=== PATIENT | male | born 1965 | race Caucasian/White ===

== ENCOUNTER 2024-12-13 10:50 | Outpatient (REF) | payer OTHER, SELFPAY ==
--- NOTE | ~2024-12-13 | XR_ITS ---
CLINICAL HISTORY: M1A.9XX0 - Chronic gout, unspecified, without tophus (tophi) --- Additional Notes or Special Instructions: ?gouty erosive arthritis vs PsA 3 view left foot Comparison: None provided Findings: Bones intact. No dislocations. No significant loss of joint space, osteophytes, or erosions. No ankle effusion. No radiopaque foreign body. IMPRESSION: 1. No acute findings. 2. No definite suspicious erosions . No soft tissue calcifications. This document has been electronically signed by: Suman Fountain MD on 12/14/2024 11:02:00
--- NOTE | ~2024-12-13 | XR_ITS ---
CLINICAL HISTORY: M1A.9XX0 - Chronic gout, unspecified, without tophus (tophi) --- Additional Notes or Special Instructions: ?tophous gout, PsA vs tumoral calcinosis, hx gout and FSGS 3 view right elbow Comparison: None provided Findings: Bones intact. No dislocations. No significant arthritic change or erosions. No joint effusion. No radiopaque foreign body. IMPRESSION: 1. No acute findings. This document has been electronically signed by: Suman Fountain MD on 12/14/2024 10:47:01
--- NOTE | ~2024-12-13 | XR_ITS ---
CLINICAL HISTORY: M1A.9XX0 - Chronic gout, unspecified, without tophus (tophi) --- Additional Notes or Special Instructions: ?gouty erosive arthritis vs PsA 3 view right foot Comparison: None provided Findings: No fractures or dislocations. Faint erosion suggested at the right 5th metatarsal head and along the medial aspect of the 1st metatarsal head. No soft tissue calcifications identified. No ankle effusion. No radiopaque foreign body. IMPRESSION: There are subtle erosions along the heads of the 1st and 5th metatarsals. Prior gout could have this appearance. No soft tissue calcification or definite tophus identified. This document has been electronically signed by: Suman Fountain MD on 12/14/2024 11:07:23
--- NOTE | ~2024-12-13 | XR_ITS ---
CLINICAL HISTORY: M1A.9XX0 - Chronic gout, unspecified, without tophus (tophi) --- Additional Notes or Special Instructions: ?gouty erosive arthritis vs PsA 3 view right hand Comparison: None provided Findings: Bones intact. No dislocations. Mild interphalangeal degenerative change and degenerative change of the base of the 1st metacarpal. Questionable subtle erosion of the base of the left 1st metacarpal and along the ulnar styloid. IMPRESSION: 1. No acute findings 2. Mild degenerative changes and questionable erosion along the base of the 1st metacarpal and along the ulnar styloid This document has been electronically signed by: Suman Fountain MD on 12/14/2024 11:06:55
--- NOTE | ~2024-12-13 | XR_ITS ---
CLINICAL HISTORY: M25.50 - Pain in unspecified joint --- Additional Notes or Special Instructions: ?tophous gout, PsA vs tumoral calcinosis, hx gout and FSGS 3 view left elbow Comparison: None provided Findings: Bones intact. No dislocations. There is prominence of the olecranon bursa. No joint effusion. No radiopaque foreign body. IMPRESSION: Thickening of the olecranon bursa. Correlation for bursitis. This document has been electronically signed by: Suman Fountain MD on 12/14/2024 11:01:43
--- NOTE | ~2024-12-13 | XR_ITS ---
CLINICAL HISTORY: M1A.9XX0 - Chronic gout, unspecified, without tophus (tophi) --- Additional Notes or Special Instructions: ?gouty erosive arthritis vs PsA 3 view left hand Comparison: None provided Findings: Bones intact. No dislocations. No significant arthritic change. Questionable tiny erosion of the juxta-articular margin of the proximal 4th interphalangeal joint. No radiopaque foreign body. IMPRESSION: 1. No acute findings 2. Questionable tiny erosion along the proximal 4th PIP joint. This document has been electronically signed by: Suman Fountain MD on 12/14/2024 12:08:59
[2024-12-13 15:10] LABS: WBC Synovial Fluid Manual 427 mm*3
[2024-12-13 15:11] LABS: Eosinophils Synovial Fluid 1 %; Lymphocytes Synovial Fluid 16 %; Monocytes Synovial Fluid 3 %; Neutrophils Synovial Fluid 80 %; RBC Synovial Fluid Manual 4404 mm*3
[2024-12-13 17:55] LABS: MANUAL DIFF FLAG NO
[2024-12-13 18:01] LABS: Appearance Urine Clear; Color Urine Yellow; Glucose Urine UA Negative (Negative); Leukocyte Esterase Urine Negative (Negative); Nitrite Urine Negative (Negative); Specific Gravity - Urine 1.015 (1.005-1.025); Urine Blood Negative (Negative); Urine Ketones Negative (Negative); Urine Protein Negative (Neg-Trace)
[2024-12-13 18:04] LABS: Bacteria Urine None Seen (None Seen); Hyaline Casts Urine 0-2 /LPF (0-2); RBC Urine 0-2 /HPF (0-2); Squamous Epithelial Cell Urine 0-2 /HPF (0-2); WBC Urine 0-5 /HPF (0-5)
[2024-12-13 18:14] LABS: Basophils Absolute Auto 0.1 X10*3/uL (0.0-0.2); Basophils Percent Auto 1.2 % (0-2); Eosinophils Absolute Auto 0.3 X10*3/uL (0.0-0.4); Eosinophils Percent Auto 3.1 % (0-4); Hematocrit 45.7 % (42.0-52.0); Hemoglobin 15.3 g/dl (14.0-18.0); Imm Gran Abs Auto 0.02 X10*3/uL (0.00-0.03); Imm Gran Pct Auto 0.2 % (0.0-0.4); Lymphocytes Absolute Auto 1.8 X10*3/uL (1.2-4.9); Lymphocytes Percent Auto 21.8 % (20-40); Mean Corpuscular HGB Conc 33.5 g/dl (31.0-36.0); Mean Corpuscular Hemoglobin 30.6 pg (27.0-33.0); Mean Corpuscular Volume 91.4 fL (80.0-98.0); Mean Platelet Volume 9.6 fL (9.4-12.4); Monocytes Absolute Auto 0.9 X10*3/uL (0.1-1.2); Monocytes Percent Auto 11.2 % (2-11); Neutrophils Absolute Auto 5.1 x10*3/uL (2.0-8.3); Neutrophils Percent Auto 62.5 % (45-73); Platelet Count 372 X10*3/uL (160-400); Red Cell Distribution Width 13.6 % (11.0-16.0); White Blood Count 8.1 X10*3/uL (4.8-10.8)
[2024-12-13 18:20] LABS: Alanine Aminotransferase 20 U/L (0-40); Aspartate Amino Transferase 26 U/L (5-37); C Reactive Protein 3.15 mg/dL (< or = 0.50); Estimated Glomerular Filt Rate > 60; Uric Acid 6.4 mg/dL (3.4-7.0)
[2024-12-13 18:28] LABS: Creatinine Urine 70.93 mg/dL; Total Protein Urine Random < 7 mg/dL (<12)
[2024-12-13 19:01] LABS: Erythrocyte Sedimentation Rate 32 MM/HR (0-15)
[2024-12-14 08:48] LABS: HBS Num1 0.64 mIU/mL (0-7.99); HBc Num1 0.02 S/CO (0.00-0.79); Hepatitis B Core Antibody Nonreactive (Nonreactive); Hepatitis B Surface Antigen Negative (Negative); ~HepC Num1 0.08 S/CO (0.00-0.79); ~Hepatitis B Surface Antibody NONREACTIVE (Nonreactive); ~Hepatitis C Antibody Nonreactive (Nonreactive)
[2024-12-14 10:45] LABS: Complement C3 154 mg/dL (82-185)
[2024-12-14 16:19] LABS: Anti DNA DS Antibody <1 IU/mL
== END 2024-12-13 10:51 | disposition home or self-care (01) ==
LOC: HO.HKASLDS 10:50
PROVIDERS: PCP Internal Medicine; Visit Provider Internal Medicine Rheumatology
DX: M1A.9XX0 Chronic gout, unspecified, without tophus (tophi) (principal); M25.50 Pain in unspecified joint; R76.8 Other specified abnormal immunological findings in serum; Z79.899 Other long term (current) drug therapy
CPT/HCPCS: 20600; 36415; 73070; 73130; 73630; 81001; 82565; 82570; 84156; 84450; 84460; 84550; 85025; 85652; 86140; 86160; 86225; 86704; 86706; 86803; 87340; 89051; 89060; 99202; J2003

== ENCOUNTER 2024-12-13 10:50 | Outpatient (AMB) | payer SELFPAY ==
--- NOTE | 2024-12-13 10:52 | MHC.OFFVIS ---
Vital Signs 12/13/24 10:54 Height 5 ft 10.39 in Weight 223 lb BMI 31.6 BP 140/90 H Blood Pressure Location Lt brachial Position Sitting Pulse 86 Pulse Source Pulse Oximeter Pulse Oximetry (%) 97 Oxygen Delivery Method Room Air Intake Visit Reasons: + KATHERINE Intake Note: New patient presents today for a +KATHERINE. Accompanied by: Self / Same As Patient Allergies No Known Allergies Allergy (Verified 12/13/24 10:54) HPI HPI + KATHERINE: Details: New patient visit. KATHERINE 1:160 04/2024. R foot swelling acute on November 01. Prednisone course helped. He then developed right 5th MTP nodule. Persistent swelling like a roller coaster . Denies diet trigger. He quit drinking alcohol 1-1/2 years ago. No family hx of IBD. Hx of right second finger dactylitis.No dactylitis. No family history of gout. NO fever, sicca symptoms, rash, photosensitivity, Raynaud's syndrome. Hx of asthma. He has dyspnea during asthmatic attack but feels comfortable at this time. No pleurisy. No proteinuria,or any urinary symptoms. R 4th finger feels '' for 1 year. He completed PT. PCP informed him that his ulnar nerve may be compressed by nodule in his right elbow. He has had on and off joint pain and swelling over the years lasting a week treated with colchicine for a few days. He has also received prednisone courses over the years for treatment of gout. Dx with gout by Dr. Ritter 2006. He reports he has aspiration and was dx crystal proven gout. He had a course of few days of colchicine. He was on allopurinol 1 year. 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 He has nodules on bilateral elbows and knees. PMX: FSGS treated with cyclosporine and prednisone in the past resulting in complications of bilateral avascular necrosis status post bilateral hip replacements. He had eczema during childhood. Brother has PsA and PsO. Sister has PsA sine PsO. No recreational drug use. No smoking or alcohol use. Medication list and medical history reviewed in expanse. [facility] Medical History (Updated 12/13/24 @ 21:03 by Lio Long MD) FSGS (focal segmental glomerulosclerosis) Eyelid disease H/O electromyography Seasonal allergies Prediabetes Obstructive sleep apnea Mild intermittent reactive airway disease Lung nodule, multiple Gout Diverticulitis Colonic polyp Chronic pain of multiple joints Albuminuria Surgical History H/O umbilical hernia repair History of colonoscopy History of total hip replacement History of sinus surgery Family History (Updated 12/13/24 @ 11:01 by Emilee Brown CMA) Sister No problems noted. Sister Psoriatic arthritis Brother Psoriatic arthritis Social History Housing: Apartment Alcohol intake: former e-Cigarette/Vaping Use: Never Used Physical Exam Vital Signs: Last Vital Signs Pulse 86 12/13/24 10:54 BP 140/90 H 12/13/24 10:54 Pulse Ox 97 12/13/24 10:54 Oxygen Delivery Method Room Air 12/13/24 10:54 BMI result Body Mass Index 31.6 Const Other: General: Comfortable CVS: RRR Respiratory: clear to auscultation bilaterally. Good respiratory effort Skin: No lesions seen MSK: Tender to palpate right 1st MTP. He has diffuse soft tissue swelling of right dorsal foot with erythema. Slight erythema right ankle without tenderness. Tophus present in bilateral olecranon bursae and bilateral anterior knees. Normal range of motion of upper extremities and lower extremities. No dactylitis present. Office Procedures AMB Joint Injection/Aspiration Joint Injection/Aspiration Details: Right 1st MTP Prep: site was prepped using aseptic technique Anesthesia: Using 25 gauge 1-1/2 inch needle 2 cc of 1% lidocaine was injected into the right 1st MTP. Then using 22 gauge 1 in needle 1 cc of blood-tinged synovial fluid was aspirated from right MTP. Procedure: Informed verbal consent was obtained. The patient tolerated the procedure well. Postprocedure protocol was discussed with patient. Coding - Small Joint Procedure code (CPT) selection complete Office Meds lidocaine (PF) 10 mg/mL (1 %) injection solution Performing Provider: Lio Long MD Performing Location: [facility] [place] Rheumatology-[facility] Administered by: Coty Vuong RN on 12/13/24 12:30 Dose Route Admin Location Dispensed Lot Number Expiration Date NDC Psychiatric [facility]ist 20 mg Infiltration intra-articular 2 mL [id number] [employer] Total Dispensed Waste 2 mL 0 % Assessment & Plan Assessment & Plan (1) Chronic tophaceous gout: Comment: Crystal proven again this visit as patient had aspiration of right 1st MTP. We discussed treatment of chronic gout (onset of right foot swelling October 2024) with another course of prednisone. After he has resolution of chronic gout, I will start uric lowering therapy with allopurinol and gout prophylaxis with colchicine. Code(s): M1A.9XX1 - Chronic gout, unspecified, with tophus (tophi) Category: Medical Plan: Prednisone course prescribed Baseline labs ordered Patient will call office after right foot gout has resolved. I will then start allopurinol 100 mg daily with colchicine 0.6 mg daily x-rays bilateral hands, elbows, and feet ordered to evaluate for gouty erosive arthritis, tophacous gout vs tumoral calcinosis Return to clinic in 2 months (2) Positive KATHERINE (antinuclear antibody): Comment: Low titer positive. My clinical suspicion for systemic rheumatological connective tissue disease such as systemic lupus erythematosus, rheumatoid arthritis, Sjogren syndrome and systemic sclerosis is low. He has family history of psoriasis and psoriatic arthritis. At this time, he has crystal proven gout contributing to right foot pain and swelling confirmed this visit with right MTP aspiration. Code(s): R76.8 - Other specified abnormal immunological findings in serum Category: Medical Plan: Workup and treatment for tophaceous gout as above. Orders: Orders XR foot LT min 3V Today M1A.9XX0 - Chronic gout, unspecified, without tophus (tophi) XR hand RT min 3V Today M1A.9XX0 - Chronic gout, unspecified, without tophus (tophi) Alanine Aminotransferase Today M1A.9XX0 - Chronic gout, unspecified, without tophus (tophi), M25.50 - Pain in unspecified joint Aspartate Amino Transferase Today M1A.9XX0 - Chronic gout, unspecified, without tophus (tophi), M25.50 - Pain in unspecified joint Complement C4 Today M1A.9XX0 - Chronic gout, unspecified, without tophus (tophi), M25.50 - Pain in unspecified joint Complete Blood Count Auto Diff Today M1A.9XX0 - Chronic gout, unspecified, without tophus (tophi), M25.50 - Pain in unspecified joint Anti DNA DS Antibody Today M1A.9XX0 - Chronic gout, unspecified, without tophus (tophi), M25.50 - Pain in unspecified joint Creatinine Today M1A.9XX0 - Chronic gout, unspecified, without tophus (tophi), M25.50 - Pain in unspecified joint Crystals Today M1A.9XX0 - Chronic gout, unspecified, without tophus (tophi) Cell Ct wDiff Synovial Fl Today M1A.9XX0 - Chronic gout, unspecified, without tophus (tophi) Crystals Today M1A.9XX0 - Chronic gout, unspecified, without tophus (tophi) XR hand LT min 3V Today M1A.9XX0 - Chronic gout, unspecified, without tophus (tophi) XR foot RT min 3V Today M1A.9XX0 - Chronic gout, unspecified, without tophus (tophi) XR elbow LT 2V Today M1A.9XX0 - Chronic gout, unspecified, without tophus (tophi), M25.50 - Pain in unspecified joint XR elbow RT 2V Today M1A.9XX0 - Chronic gout, unspecified, without tophus (tophi), M25.50 - Pain in unspecified joint C Reactive Protein Today M1A.9XX0 - Chronic gout, unspecified, without tophus (tophi), M25.50 - Pain in unspecified joint, Z79.899 - Other custodial (current) drug therapy Complement C3 Today M1A.9XX0 - Chronic gout, unspecified, without tophus (tophi), M25.50 - Pain in unspecified joint Erythrocyte Sedimentation Rate Today M1A.9XX0 - Chronic gout, unspecified, without tophus (tophi), M25.50 - Pain in unspecified joint, Z79.899 - Other remote computer terminal operator (current) drug therapy UA w Microscopic Today M1A.9XX0 - Chronic gout, unspecified, without tophus (tophi), M25.50 - Pain in unspecified joint Protein Creatinine Ratio, Ur Today M1A.9XX0 - Chronic gout, unspecified, without tophus (tophi), M25.50 - Pain in unspecified joint Uric Acid Today M1A.9XX0 - Chronic gout, unspecified, without tophus (tophi), M25.50 - Pain in unspecified joint Hepatitis B,C Profile Today M1A.9XX0 - Chronic gout, unspecified, without tophus (tophi), M25.50 - Pain in unspecified joint AMB Joint Injection/Aspiration Today M1A.9XX0 - Chronic gout, unspecified, without tophus (tophi) Medications: New prednisone Take 4 tablets daily for 5 days, 3 tablets daily for 5 days, 2 tablets daily for 5 days, 1 tablet daily for 5 days then half a tablet daily for 5 days then stop. Take prednisone with food. 10 mg PO DIRECTED 53 tabs 0RF Coding Level of Care Code New Pt Level 5 (25426) Diagnoses Chronic tophaceous gout M1A.9XX1 Positive KATHERINE (antinuclear antibody) R76.8 CPT Codes Coding - 86541 - Small joint: 47836 - Small Joint ([id number]) Time Spent (min) 60
[2024-12-13 10:54] VITALS: BP 140/90; PULSE 86; O2SAT 97; BMI 31.6
--- OUTSIDE RECORDS SUMMARY | 2024-12-13 12:28 | XMS_ITS | Clinical Summary ---
Author Organization [facility] ity Address [address] [place] [address] Care Team Providers Care General Cleaner Name Role Phone Tomas Cpoeland MD Primary Care Provider [phone] Allergies No known active allergies Medications budesonide-form oteroL (Symbicort) 160-4.5 mcg/actuation inhaler TAKE 2 PUFFS BY MOUTH TWICE A DAY. Active loratadine (CLARITIN) 10 mg tablet Take 10 mg by mouth daily. Active albuterol 2.5 mg /3 mL (0.083 %) nebulizer solution Take 3 mL (2.5 mg total) by nebulization every 4 (four) hours if needed for wheezing. 300 mL 11 5 10/18/19 Active Encounters Date Type Department Care Team Description 10/17/[address] [id number] Vel Redding MD Med Refill from Last 3 Months Social History Tobacco Use Types Packs/Day Years Used Date Smoking Tobacco: Never Smokeless Tobacco: Never Alcohol Use Standard Drinks/Week Comments Never 0 (1 standard drink = 0.6 oz pur e alcohol) Sex and Gender Information Value Date Recorded Sex Assigned at Not on file Legal Sex Male 11:06 AM EST Gender Identity Not on file Sexual Orientation Not on file Obstetrics History Last Filed Vital Signs Vital Sign Reading Time Taken Comments Blood Pressure 102/64 02/23/2024 3:48 PM EDT Sitting L Arm Pulse 65 02/23/2024 3:48 PM EDT Temperature - - Respiratory Rate - - Oxygen Saturation - - Inhaled Oxygen Concentration - - Weight 102 kg (225 lb 12.8 oz) 02/23/2024 3:48 PM EDT Height 175.3 cm (5' 9 ) 02/23/2024 3:48 PM EDT Body Mass Index 33.34 02/23/2024 3:48 PM EDT Plan of Treatment Upcoming Encounters Date Type Department Care Team (Late st Contact Info) Description 02/23/2025 3:30 PM EDT Office Visit Pulmonolgy - [place] [address] [place] [id number] Vel Redding MD [address] [facility] [address] [place] [address] Health Maintenance Due Date Last Done Comments DTaP,Tdap,and Td Vaccines (1 - Tdap) 10/02/1982 Pneumococcal Vaccine: 50+ Ye ars (1 of 2 - PCV) 10/02/1982 Pneumococcal Vaccine: Pediat rics (0 to 5 Years) and At-Risk Patients (6 to 64 Years) (1 of 2 - PCV) 10/02/1982 Zoster Vaccines (1 of 2) 10/02/2013 Cholesterol Screening (Lipid Panel) 05/26/2022 Colorectal Cancer Screening: Colonoscopy 05/26/2022 Depression Screening 05/26/2022 HIV Screening 05/26/2022 Hepatitis C Screening 05/26/2022 Social Influencers of Health Screening 05/26/2022 RSV Immunization Adult Patie nts (1 - Risk 60-74 years 1-dose series) 2023 COVID-19 Vaccine (1 - 2023-2 5 season) 2024 Influenza Vaccine (Season Ended) 2025 HIB Vaccines Aged Out No longer eligi ble based on patient's age to complete this topic HPV Vaccines Aged Out No longer eligi ble based on patient's age to complete this topic Hepatitis A Vaccines Aged Out No long er eligible based on patient's age to complete this topic Hepatitis B Vaccines Aged Out No long er eligible based on patient's age to complete this topic IPV Vaccines Aged Out No longer eligi ble based on patient's age to complete this topic MMR Vaccines Aged Out No longer eligi ble based on patient's age to complete this topic Meningococcal ACWY Vaccine Aged Out N o longer eligible based on patient's age to complete this topic Meningococcal B Vaccine Aged Out No l onger eligible based on patient's age to complete this topic RSV Immunization Patients Un rahel 20 months Aged Out No longer eligible b ased on patient's age to complete this topic Varicella Vaccines Aged Out No longer eligible based on patient's age to complete this topic Care Teams General Cleaner Relationship Specialty Start Date End Date Tomas Copeland MD PCP - General Internal Medicine 04/25/19
== END 2024-12-13 12:37 | disposition home or self-care (01) ==
LOC: HO.RHES 10:50
PROVIDERS: PCP Internal Medicine; Visit Provider Internal Medicine Rheumatology
DX: M1A.9XX1 Chronic gout, unspecified, with tophus (tophi) (principal); R76.8 Other specified abnormal immunological findings in serum
CPT/HCPCS: 20600; 99205

== ENCOUNTER → 2024-12-13 15:44 | Outpatient (BNV) | payer OTHER, SELFPAY | PROVIDERS: PCP Internal Medicine; Visit Provider Radiology Vascular & Interventional Radiology | DX: M15.4 Erosive (osteo)arthritis (principal); M25.521 Pain in right elbow; M79.671 Pain in right foot; M70.22 Olecranon bursitis, left elbow; M79.672 Pain in left foot | CPT/HCPCS: 73070; 73130; 73630 ==

== ENCOUNTER 2025-02-15 10:32 | Outpatient (AMB) | payer OTHER, SELFPAY ==
[2025-02-15 10:36] VITALS: BP 120/80; PULSE 69; O2SAT 98; BMI 32.5
--- NOTE | 2025-02-15 10:36 | A.OFFVIS_ITS ---
Vital Signs 02/15/25 10:36 Height 5 ft 10.39 in Weight 229 lb 0.964 oz BMI 32.5 BP 120/80 Blood Pressure Location Lt brachial Position Sitting Pulse 69 Pulse Source Pulse Oximeter Pulse Oximetry (%) 98 Oxygen Delivery Method Room Air Intake Visit Reasons: 2 months / review results Intake Note: New patient presents today for a +KATHERINE. Accompanied by: Self / Same As Patient Allergies No Known Allergies Allergy (Verified 02/15/25 10:36) HPI HPI 2 months / review results: Details: Foot/ankle swelling resolved. Left shoulder pain started a few days ago. Initially was unable to move his arm up. He took ibuprofen 400mg q4h with improvement in pain level and range of motion. He also has pain in bilateral forearms. He started allopurinol but not colchicine. [facility] Medical History FSGS (focal segmental glomerulosclerosis) Eyelid disease H/O electromyography Seasonal allergies Prediabetes Obstructive sleep apnea Mild intermittent reactive airway disease Lung nodule, multiple Gout Diverticulitis Colonic polyp Chronic pain of multiple joints Albuminuria Surgical History H/O umbilical hernia repair History of colonoscopy History of total hip replacement History of sinus surgery Family History Sister No problems noted. Sister Psoriatic arthritis Brother Psoriatic arthritis Social History Housing: Apartment Alcohol intake: former e-Cigarette/Vaping Use: Never Used Physical Exam Vital Signs: Last Vital Signs Pulse 69 02/15/25 10:36 BP 120/80 02/15/25 10:36 Pulse Ox 98 02/15/25 10:36 Oxygen Delivery Method Room Air 02/15/25 10:36 BMI result Body Mass Index 32.5 Const Other: General: Comfortable CVS: RRR Respiratory: clear to auscultation bilaterally. Good respiratory effort Skin: No lesions seen MSK: He has synovitis of right 2nd to 3rd MCP with tenderness on palpation. Tophus has resolved. He has fullness of bilateral olecranon bursae. Normal range of motion of upper extremities and lower extremities. No dactylitis present. Results Reviewed Results Reviewed: Ordering Physician: Lio Long MD Date of Service: 12/13/24 Procedure(s): XR hand LT min 3V Accession Number(s): [id number] cc: Lio Long MD; Tomas Copeland MD~ CLINICAL HISTORY: M1A.9XX0 - Chronic gout, unspecified, without tophus (tophi) --- Additional Notes or Special Instructions: ?gouty erosive arthritis vs PsA 3 view left hand Comparison: None provided Findings: Bones intact. No dislocations. No significant arthritic change. Questionable tiny erosion of the juxta-articular margin of the proximal 4th interphalangeal joint. No radiopaque foreign body. IMPRESSION: 1. No acute findings 2. Questionable tiny erosion along the proximal 4th PIP joint. Ordering Physician: Lio Long MD Date of Service: 12/13/24 Procedure(s): XR hand RT min 3V Accession Number(s): [id number] cc: Lio Long MD; Tomas Copeland MD~ CLINICAL HISTORY: M1A.9XX0 - Chronic gout, unspecified, without tophus (tophi) --- Additional Notes or Special Instructions: ?gouty erosive arthritis vs PsA 3 view right hand Comparison: None provided Findings: Bones intact. No dislocations. Mild interphalangeal degenerative change and degenerative change of the base of the 1st metacarpal. Questionable subtle erosion of the base of the left 1st metacarpal and along the ulnar styloid. IMPRESSION: 1. No acute findings 2. Mild degenerative changes and questionable erosion along the base of the 1st metacarpal and along the ulnar styloid 3 view right foot Comparison: None provided Findings: No fractures or dislocations. Faint erosion suggested at the right 5th metatarsal head and along the medial aspect of the 1st metatarsal head. No soft tissue calcifications identified. No ankle effusion. No radiopaque foreign body. IMPRESSION: There are subtle erosions along the heads of the 1st and 5th metatarsals. Prior gout could have this appearance. No soft tissue calcification or definite tophus identified. Assessment & Plan Assessment & Plan (1) Chronic tophaceous gout: Comment: Gout affecting his right ankle and foot has resolved. 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 Imaging has revealed erosive changes. Since being on allopurinol tophus has resolved. He is tolerating allopurinol. Uric acid goal is less than 5. In the past he had diarrhea from colchicine used during an acute attack possibly related to higher dose. He has agreed to try colchicine for gout prophylaxis. Rheumatology history: Crystal proven (right 1st MTP 10/2024) erosive with top hus. Allopurinol 10/2024- Code(s): M1A.9XX1 - Chronic gout, unspecified, with tophus (tophi) Category: Medical Plan: Prednisone course prescribed for treatment of residual synovitis Labs ordered for disease and drug monitoring Continue allopurinol 100 mg daily Start colchicine 0.6 mg daily Return to clinic in 3 months (2) Left shoulder pain: Comment: Acute onset with improve pain and range of motion with 1 day of ibuprofen. Differential diagnosis includes calcific tendonitis, OA flare versus rotator cuff tendonitis Code(s): M25.512 - Pain in left shoulder Category: Medical Qualifiers: Chronicity: acute Qualified Code(s): M25.512 - Pain in left shoulder Plan: X-ray ordered He will call if pain does not improve. I will then order PT for shoulder strengthening Return to clinic in 3 months Orders: Orders Creatinine Today M1A.9XX1 - Chronic gout, unspecified, with tophus (tophi) Uric Acid Today M1A.9XX1 - Chronic gout, unspecified, with tophus (tophi) Alanine Aminotransferase Today M1A.9XX1 - Chronic gout, unspecified, with tophus (tophi) Aspartate Amino Transferase Today M1A.9XX1 - Chronic gout, unspecified, with tophus (tophi) XR shoulder LT min 2V Today M25.512 - Pain in left shoulder Medications: New prednisone Take 3 tablets daily 1 week, 2 tablets daily 1 week, 1 tablet daily 1 week then stop. Take prednisone with food. Avoid NSAIDs. 5 mg PO DIRECTED 42 tabs 0RF Discontinued prednisone Take 4 tablets daily for 5 days, 3 tablets daily for 5 days, 2 tablets daily for 5 days, 1 tablet daily for 5 days then half a tablet daily for 5 days then stop. Take prednisone with food. Discontinued Reason: Doctor's Order 10 mg PO DIRECTED 53 tabs 0RF Coding Level of Care Code Est Pt Level 4 (74130) Complex EM visit Add On G2211 Diagnoses Chronic tophaceous gout M1A.9XX1 Acute pain of left shoulder M25.512 Chronicity: acute
--- OUTSIDE RECORDS SUMMARY | 2025-02-15 12:03 | XMS_ITS | Clinical Summary ---
Author Organization 175 [facility] Address [address] [place] [address] Phone Care Team Providers Care Public Policy Manager Name Role Phone Tomas Copeland MD Primary Care Provider [phone] Allergies No known active allergies Medications budesonide-form oteroL (Symbicort) 160-4.5 mcg/actuation inhaler TAKE 2 PUFFS BY MOUTH TWICE A DAY. 1 Active loratadine (CLARITIN) 10 mg tablet Take 10 mg by mouth daily. Active albuterol 2.5 mg /3 mL (0.083 %) nebulizer solution Take 3 mL (2.5 mg total) by nebulization every 4 (four) hours if needed for wheezing. 300 mL 11 5 10/18/19 26 Active Social History Tobacco Use Types Packs/Day Years [...] 3:30 PM EDT Office Visit Pulmonolgy - [place] [address] [facility] [address] [place] [phone] Vel Redding MD [address] [facility] [address] [place] [address] Health Maintenance Due Date Last Done Comments DTaP,Tdap,and Td Vaccines (1 - Tdap) 10/02/1982 Pneumococcal Vaccine: 50+ Ye ars (1 of 2 - PCV) 10/02/1982 Zoster Vaccines (1 of 2) 10/02/2013 Cholesterol Screening (Lipid Panel) 05/26/2022 Colorectal Cancer Screening: Colonoscopy 05/26/2022 HIV Screening 05/26/2022 Hepatitis C Screening 05/26/2022 Social Influencers of Health Screening 05/26/2022 RSV Immunization Adult Patie nts (1 - Risk 60-74 years 1-dose series) 2023 COVID-19 Vaccine (1 - 2023-2 5 season) 2024 Depression Screening 06/28/2024 Influenza Vaccine (#1) 2025 HIB Vaccines Aged Out No longer [...] on patient's age to complete this topic Insurance [place] [address] Care Teams Public Policy Manager Relationship Specialty Start Date End Date Tomas Copeland MD [address] [place] [phone] PCP - General Internal Medicine 02/09/25
== END 2025-02-15 11:21 | disposition home or self-care (01) ==
LOC: HO.RHES 10:33
PROVIDERS: PCP Internal Medicine; Visit Provider Internal Medicine Rheumatology
DX: M1A.9XX1 Chronic gout, unspecified, with tophus (tophi) (principal); M25.512 Pain in left shoulder
CPT/HCPCS: 99214

== ENCOUNTER 2025-02-15 10:32 | Outpatient (REF) | payer OTHER, SELFPAY ==
[2025-02-15 14:46] LABS: Alanine Aminotransferase 23 U/L (0-40); Aspartate Amino Transferase 27 U/L (5-37); Estimated Glomerular Filt Rate > 60; Uric Acid 5.4 mg/dL (3.4-7.0)
== END 2025-02-15 10:33 | disposition home or self-care (01) ==
LOC: HO.WFDLDS 10:32
PROVIDERS: Visit Provider Internal Medicine Rheumatology
DX: M25.512 Pain in left shoulder (principal); M1A.9XX1 Chronic gout, unspecified, with tophus (tophi)
CPT/HCPCS: 36415; 82565; 84450; 84460; 84550

== ENCOUNTER 2025-02-16 16:40 | Outpatient (REF) | payer OTHER, SELFPAY ==
--- NOTE | ~2025-02-16 | XR_ITS ---
EXAMINATION: XR SHOULDER, LEFT CLINICAL INFORMATION: M25.512 - Pain in left shoulder COMPARISON: None available. TECHNIQUE: AP external rotation, Grashey, scapular Y, and axillary views of the left shoulder. FINDINGS: Moderate-sized medial osteophyte is present involving the humeral head. There is mild sclerosis of the subchondral bone. There are marginal osteophytes involving glenoid. Multifocal calcified bodies project in the region of the subcoracoid recess and in the anterior and posterior axillary pouch. Faint, calcinosis is visible in the glenohumeral joint. There is moderate degenerative change of the AC joint. It is narrowed with marginal osteophytes. XR/XR shoulder LT min 2V IMPRESSION: Moderate degenerative change of the left shoulder joint consistent with CPPD arthropathy. Moderate AC joint arthropathy. Secondary osteochondromatosis with multiple ossified bodies in the axillary pouch and subcoracoid recess. Electronically signed by: Hermilo Reza MD 02/16/2025 05:10 PM EDT
--- OUTSIDE RECORDS SUMMARY | 2025-02-16 16:42 | XMS_ITS | Clinical Summary ---
Author Organization 175 [facility] Address [address] [place] [address] Phone Care Team Providers Care Management Accountant Name Role Phone Tomas Copeland MD Primary Care Provider [phone] Allergies No known active allergies Medications budesonide-form [...] 3:30 PM EDT Office Visit Pulmonolgy - [place] 175 [facility] [address] [place] [phone] Vel Redding MD 175 [facility] [address] [place] [address] Health Maintenance Due Date Last Done Comments [...] patient's age to complete this topic [place] [address] [place] [address] Care Teams Management Accountant Relationship Specialty Start Date End Date Tomas Copeland MD [address] [place] [phone] PCP - General Internal Medicine 02/09/25
== END 2025-02-16 16:41 | disposition home or self-care (01) ==
LOC: HO.XRAY 16:40
PROVIDERS: Visit Provider Internal Medicine Rheumatology
DX: M25.512 Pain in left shoulder (principal)
CPT/HCPCS: 73030

== ENCOUNTER → 2025-02-16 16:43 | Outpatient (BNV) | payer OTHER, SELFPAY | PROVIDERS: Visit Provider Radiology Diagnostic Radiology | DX: M19.012 Primary osteoarthritis, left shoulder (principal) | CPT/HCPCS: 73030 ==

== ENCOUNTER 2025-04-03 15:46 | Outpatient (REF) | payer OTHER, SELFPAY ==
--- OUTSIDE RECORDS SUMMARY | 2025-04-03 13:15 | XMS_ITS | Encounter Summary ---
Author Organization [facility] Address [address] [place] [address] Care Team Providers Care Barrel Assembly Inspector Name Role Phone Tomas Copeland MD Primary Care Provider [phone] Reason for Visit * Reason Comments Asthma F/u asthma Encounter Details Date Type Department Care Team (Late st Contact Info) Description 04/03/2025 1:15 PM EDT Office Visit Pulmonology - [place] [address] [facility] [address] [place] [address] Vel Redding MD [address] [facility] [address] [place] [address] Mild persistent asthma, unspecified whether complicated (Primary Dx); ANTONIO (obstructive sleep apnea) Social History Tobacco Use Types Packs/Day Years Used Date Smoking Tobacco: Never Smokeless Tobacco: Never Alcohol Use Standard Drinks/Week Comments Never 0 (1 standard drink = 0.6 oz pur e alcohol) Sex and Gender Information Value Date Recorded Sex Assigned at Not on file Legal Sex Male 11:06 AM EST Gender Identity Not on file Sexual Orientation Not on file documented as of this encounter Last Filed Vital Signs Vital Sign Reading Time Taken Comments Blood Pressure 126/80 04/03/2025 1:28 PM EDT Pulse 68 04/03/2025 1:28 PM EDT Temperature 36.6 C (97.8 F) 04/03/2025 1:28 PM EDT Respiratory Rate 20 04/03/2025 1:28 PM EDT Oxygen Saturation 97% 04/03/2025 1:28 PM EDT Inhaled Oxygen Concentration - - Weight 103 kg (226 lb 6.4 oz) 04/03/2025 1:28 PM EDT Height 177.8 cm (5' 10 ) 04/03/2025 1:28 PM EDT Body Mass Index 32.49 04/03/2025 1:28 PM EDT documented in this encounter Progress Notes * Vel Redding MD - 04/03/2025 1:15 PM EDT ADULT PULMONARY CONSULT CHIEF COMPLAINT or REASON FOR CONSULTATION: Asthma (F/u asthma) HISTORY OF PRESENT ILLNESS: Enrrique Garcia is a 59 y.o. years old, male with a history of asthma, pulmonary nodule and ANTONIO. Hewas last seen in 2020- 4 yrs ago pre covid-19 epidemic. He has been very stable on current regimen of Symbicort and as needed albuterol. The patient has no recent exacerbation, he walks for three-quarter mile every day. In terms of CPAP, he is compliant with CPAP, has no drowsiness driving or snorin g. He had a sleep study and a new cpap machine. ALLERGIES: Current Allergies[1] ACTIVE MEDICATIONS: Medications Taking[2] PROVIDER ATTESTS THAT THE MEDICATION LIST WAS OBTAINED, REVIEWED AND UPDATED. REVIEW OF SYSTEMS: GENERAL: No wt lost or fever ENT: +snoring- none on cpap Eye: RESPIRATORY: no cough, wheezing and dyspnea CARDIOVASCULAR: No chest pain, leg swelling or palpitations GI: No abdominal discomfort, MUSCULOSKELETAL: +backpain HEMATOLOGY/LYMPHOLOGY No prolonged bleeding, easy bruisability ENDOCRINE: no DM NEURO: No focal weakness : Psych: no depression PAST MEDICAL HISTORY: There are no active problems to display for this patient. Surgical History[3] FAMILY HISTORY: Family History[4] OCCUPATION OR OCCUPATION EXPOSURE: SOCIAL HISTORY Social History Socioeconomic History Marital status: Spouse name: Not on file Number of children: Not on file Years of education: Not on file Highest education level: Not on file Occupational History Not on file Tobacco Use Smoking status: Never Smokeless tobacco: Never Substance and Sexual Activity Alcohol use: Never Drug use: Never Sexual activity: Not on file Other Topics Concern Not on file Social History Narrative Not on file IMMUNIZATION: Immunization History Administered Date(s) Administered Pfizer SARS-CoV-2 COVID-19, mRNA, LNP-S, preservative free 10/05/2020, 10/26/2020 PHYSICAL EXAM: Visit Vitals BP 126/80 (BP Location: Left arm, Patient Position: Sitting, BP Cuff Size: Adult) Pulse 68 Temp 36.6 ??C (97.8 ??F) (Temporal) Resp 20 Ht 1.778 m (70 ) Wt 103 kg (226 lb 6.4 oz) SpO2 97% BMI 32.49 kg/m?? Smoking Status Never BSA 2.2 m?? APPEARANCE: Alert and in no acute distress. Well nourished EYES: Conjunctiva and sclera normal. NOSE/SINUS: Nares normal. Septum midline. Mucosa No drainage or sinus tenderness. MOUTH/THROAT: no erythema or exudates. Mallampati class 2 NECK: Neck supple, thyroid symmetric and of normal size. HEART: RRR with normal S1 and S2, no murmurs, no gallops, no JVD appreciated. LUNG: CTA b/l, no wheezing or bronchial bs ABDOMEN: Bowel sounds normoactive, soft, non-tender EXTREMITIES: no clubbing, cyanosis, or edema. LYMPH NODES: No cervical and supra-clavicular lymphadenopathy. NEURO: Awake, alert and oriented x 3, no focalization Derm: no rash CARDIOPULMONARY TEST: Last Pulmonary function Test showed: Impression FEV1/FVC 81%. FEV1 3.24 and 93%. FVC 87%. TLC 90%. RV 92%. DLCO 102%. No bronchodilator post testing was performed. No obvious obstruction, restriction, or decrease in diffusion. Last Resulted: 08/25/23 RADIOLOGIST IMAGING: DR Springer Routine 2 Views - 07/24/19 - 8916 HISTORY: The patient is a 53-year-old male with dyspnea and history of pulmonary nodules. FINDINGS: PA and lateral radiographs of the chest demonstrate normal appearance of the bony structures. The cardiac and mediastinal contours are within normal limits. There are are several faint nodular densities in the right lower lung, stable since the prior study. The lungs are otherwise clear and the costophrenic angles are. IMPRESSION: No acute findings. Several small faint nodules are present laterally near the right lung base, stable since 05/28/2010 and therefore regarded as being benign. ASSESSMENT: ICD-10-CM ICD-9-CM 1. Mild persistent asthma, unspecified whether complicated J45.30 493.90 2. ANTONIO (obstructive sleep apnea) G47.33 327.23 PLAN: The patient is compliant with CPAP and benefiting from therapy, his machine is one yr old. He will continue Symbicort and as needed albuterol for his asthma. Last PFT in 2023 was normal. - Follow up with Tomas Copeland MD for the other co-morbilities. - I spend 31 Minutes on this visit. The patient was educated about his problems, where assessment and plan was reviewed and explained, All questions were answered. This includes: Preparing to see the patient, obtaining and/or reviewing separately obtained history, performing a medically appropriate exam, ordering medications, tests, or procedures, documenting clinical information in the electronic health record, and independently interpreting results. RETURN TO THE NEXT VISIT: Based on physical exam, symptomatology, tests requested and baseline pulmonary evaluation/disease, I instructed the patient to come back to see me in 12 mths for reevaluation after the test has been done or earlier if the patient needed. Thanks Tomas Copeland MD for allowing me to have the opportunity to assist in the care of this patient. [1] No Known Allergies [2] Outpatient Medications Marked as Taking for the 04/03/25 encounter (Office Visit) with Vel Redding MD Medication Sig Dispense Refill albuterol 2.5 mg /3 mL (0.083 %) nebulizer solution Take 3 mL (2.5 mg total) by nebulization every 4 (four) hours if needed for wheezing. 300 mL 11 allopurinoL (ZYLOPRIM) 300 mg tablet Take 1 tablet (300 mg total) by mouth 1 (one) time each day. budesonide-formoteroL (Symbicort) 160-4.5 mcg/actuation inhaler TAKE 2 PUFFS BY MOUTH TWICE A DAY. loratadine (CLARITIN) 10 mg tablet Take 10 mg by mouth daily. [3] No past surgical history on file. [4] No family history on file. documented in this encounter Plan of Treatment Upcoming Encounters Date Type Department Care Team (Late st Contact Info) Description 04/03/2026 3:30 PM EDT Office Visit Pulmonology - [place] 175 [facility] [address] [place] [address] Vel Redding MD 175 [facility] [address] [place] [address] documented as of this encounter Visit Diagnoses Diagnosis Mild persistent asthma, unspecified whether complicated- Primary ANTONIO (obstructive sleep apnea) Obstructive sleep apnea (adult) (pediatric) documented in this encounter Historical Medications * This list may reflect changes made after this encounter. allopurinoL (ZYLOPRIM) 300 mg tablet Take 1 tablet (300 mg total) by mouth 1 (one) time each day. added in this encounter Care Teams Barrel Assembly Inspector Relationship Specialty Start Date End Date Tomas Copeland MD [address] [place] [phone] PCP - General Internal Medicine 02/09/25 documented as of this encounter
--- OUTSIDE RECORDS SUMMARY | 2025-04-03 18:43 | XMS_ITS | Clinical Summary ---
Author Organization [address] [place] [address] [place] [phone] Phone Care Team Providers Care Janitorial Cleaner Name Role Phone Tomas Copeland MD Primary Care Provider [phone] Allergies No known active allergies Medications budesonide-form [...] 300 mL 11 5 10/18/19 26 Active allopurinoL (ZYLOPRIM) 300 mg tablet Take 1 tablet (300 mg total) by mouth 1 (one) time each day. Active Encounters Date Type Department Care Team Description 04/03/2025 1:15 PM EDT Office Visit Pulmonology [facility] 175 [facility] [address] [place] [phone] Vel Redding MD Mild persistent asthma, unspecified whether complicated (Primary Dx); ANTONIO (obstructive sleep apnea) from Last 3 Months Social History Tobacco [...] Mass Index 32.49 04/03/2025 1:28 PM EDT Plan of Treatment Upcoming Encounters Date Type Department Care Team (Late st Contact Info) Description 04/03/2026 3:30 PM EDT Office Visit Pulmonology - [place] 175 [facility] [address] [place] [phone] Vel Redding MD 175 [facility] [address] [place] [address] Health Maintenance Due Date Last Done Comments Colorectal Cancer Screening: Colonoscopy 1963 DTaP,Tdap,and Td Vaccines (1 - Tdap) 10/02/1982 Pneumococcal Vaccine: 50+ Years (1 of 2 - PCV) 10/02/1982 Zoster Vaccines (1 of 2) 10/02/2013 Cholesterol Screening (Lipid Panel) 05/26/2022 HIV Screening 05/26/2022 Hepatitis C Screening 05/26/2022 Social Influencers of Health Screening 05/26/2022 RSV Immunization Adult Patients (1 - Risk 60-74 years 1-dose series) 2023 Depression Screening 06/28/2024 COVID-19 Vaccine (3 - 2024-2 6 season) 2025 10/26/2020, 10/05/2020 Influenza Vaccine (#1) 2025 , 04/27/2022, 05/17/2020 HIB Vaccines Aged Out No longer eligi [...] to complete this topic RSV Immunization Patients Under 20 months Aged Out No longer eligible b ased on patient's age to complete this topic Varicella Vaccines Aged Out No longer eligible based on patient's age to complete this topic [place] [address] Care Teams Janitorial Cleaner Relationship Specialty Start Date End Date Tomas Copeland MD [address] [place] [phone] PCP - General Internal Medicine 02/09/25
== END 2025-04-03 15:47 | disposition home or self-care (01) ==
LOC: HO.SH 15:46
PROVIDERS: Visit Provider Nurse Practitioner Family
DX: Z01.118 Encounter for examination of ears and hearing with other abnormal findings (principal); H90.3 Sensorineural hearing loss, bilateral
CPT/HCPCS: 92557; 92567

== ENCOUNTER 2025-06-06 14:06 | Outpatient (REF) | payer OTHER, SELFPAY ==
[2025-06-06 18:18] LABS: MANUAL DIFF FLAG NO
[2025-06-06 18:45] LABS: Hematocrit 50.4 % (42.0-52.0); Hemoglobin 16.8 g/dl (14.0-18.0); Imm Gran Abs Auto 0.02 X10*3/uL (0.00-0.03); Imm Gran Pct Auto 0.2 % (0.0-0.4); Lymphocytes Absolute Auto 2.5 X10*3/uL (1.2-4.9); Mean Corpuscular HGB Conc 33.3 g/dl (31.0-36.0); Mean Corpuscular Hemoglobin 31.0 pg (27.0-33.0); Mean Corpuscular Volume 93.0 fL (80.0-98.0); NRBC Abs Auto 0.000 X10*3/uL (0.0-0.012); NRBC Pct Auto 0.0 /100WBC (0.0-0.2); Platelet Count 322 X10*3/uL (160-400); Red Blood Count 5.42 X10*6/uL (4.60-5.80); White Blood Count 8.1 X10*3/uL (4.8-10.8)
[2025-06-06 19:38] LABS: Alanine Aminotransferase 44 U/L (0-40); Aspartate Amino Transferase 32 U/L (5-37); Uric Acid 5.6 mg/dL (3.4-7.0)
== END 2025-06-06 14:07 | disposition home or self-care (01) ==
LOC: HO.HKASLDS 14:06
PROVIDERS: Visit Provider Internal Medicine Rheumatology
DX: M25.512 Pain in left shoulder (principal); M1A.9XX1 Chronic gout, unspecified, with tophus (tophi); Z96.649 Presence of unspecified artificial hip joint; Z79.899 Other long term (current) drug therapy
CPT/HCPCS: 36415; 84450; 84460; 84550; 85025

== ENCOUNTER 2025-06-06 14:06 | Outpatient (AMB) | payer OTHER, SELFPAY ==
[2025-06-06 14:15] VITALS: BP 160/120; PULSE 63; O2SAT 98; BMI 32.1
--- NOTE | 2025-06-06 14:15 | MHC.OFFVIS ---
Vital Signs 06/06/25 14:15 Height 5 ft 10 in Weight 223 lb 15.834 oz BMI 32.1 BP 160/120 H Blood Pressure Location Rt brachial Position Sitting Pulse 63 Pulse Source Pulse Oximeter Pulse Oximetry (%) 98 Oxygen Delivery Method Room Air Intake Visit Reasons: 3months Intake Note: New patient presents today for a +KATHERINE. Accompanied by: Self / Same As Patient Allergies No Known Allergies Allergy (Verified 06/06/25 14:16) HPI HPI 3months: Details: Prednisone course resolved joint swelling. He is out of allopurinol and colchicine today. COUNT INCLUDES THE [facility] Medical History FSGS (focal segmental glomerulosclerosis) Eyelid disease H/O electromyography Seasonal allergies Prediabetes Obstructive sleep apnea Mild intermittent reactive airway disease Lung nodule, multiple Gout Diverticulitis Colonic polyp Chronic pain of multiple joints Albuminuria Surgical History H/O umbilical hernia repair History of colonoscopy History of total hip replacement History of sinus surgery Family History Sister No problems noted. Sister Psoriatic arthritis Brother Psoriatic arthritis Social History Housing: Apartment Alcohol intake: former e-Cigarette/Vaping Use: Never Used Physical Exam Vital Signs: Last Vital Signs Pulse 63 06/06/25 14:15 BP 160/120 H 06/06/25 14:15 Pulse Ox 98 06/06/25 14:15 Oxygen Delivery Method Room Air 06/06/25 14:15 BMI result Body Mass Index 32.1 Const Other: General: Comfortable CVS: RRR Respiratory: clear to auscultation bilaterally. Good respiratory effort Skin: No lesions seen MSK: He has fullness of bilateral olecranon bursae. Normal range of motion of upper extremities and lower extremities. No dactylitis present. Assessment & Plan Assessment & Plan (1) Chronic tophaceous gout: Comment: Polyarticular gout attack resolved with prednisone course. Uric acid goal is less than 5. He has persistent fullness of olecranon bursae concerning for chronic tophaceous gout. Rheumatology history: Crystal proven (right 1st MTP 10/2024) erosive, polyarticular with tophus. Allopurinol 10/2024-, colchicine 01/2025- Code(s): M1A.9XX1 - Chronic gout, unspecified, with tophus (tophi) Category: Medical Plan: Labs ordered for disease and drug monitoring Continue allopurinol 200 mg daily Continue colchicine 0.6 mg daily We discussed acute gout protocol with colchicine Return to clinic in 3 months (2) Left shoulder pain: Comment: Resolved. Acute onset with improve pain and range of motion with 1 day of ibuprofen. X-ray reveals glenohumeral joint and AC joint osteoarthritis and calcification around glenohumeral joint suggestive of CPPD arthropathy. There are also multifocal calcified bodies project in the region of the subcoracoid recess and in the anterior and posterior axillary pouch, which radiologist's suggests is related to secondary osteochondromatosis. In a patient with tophaceous gout, it is important to further define these abnormalities as it may also be related to tophaceous gout. I am ordering an MRI for further characterisation of his shoulder pathology. Code(s): M25.512 - Pain in left shoulder Category: Medical Qualifiers: Chronicity: acute Qualified Code(s): M25.512 - Pain in left shoulder Plan: MRI left shoulder without contrast ordered Return to clinic in 3 months Orders: Orders Uric Acid Today M1A.9XX1 - Chronic gout, unspecified, with tophus (tophi) Alanine Aminotransferase Today M1A.9XX1 - Chronic gout, unspecified, with tophus (tophi) Aspartate Amino Transferase Today M1A.9XX1 - Chronic gout, unspecified, with tophus (tophi) Aspartate Amino Transferase 1 Month Z79.899 - Other jail (current) drug therapy MR shoulder LT wo con Today M25.512 - Pain in left shoulder Complete Blood Count Auto Diff Today M1A.9XX1 - Chronic gout, unspecified, with tophus (tophi) Alanine Aminotransferase 1 Month Z79.899 - Other termite treater helper (current) drug therapy Coding Level of Care Code Est Pt Level 4 (20976) Add On Problem Visit Only Diagnoses Chronic tophaceous gout M1A.9XX1 Acute pain of left shoulder M25.512 Chronicity: acute
--- OUTSIDE RECORDS SUMMARY | 2025-06-06 22:00 | XMS_ITS | Clinical Summary ---
Author Organization [address] [place] [address] [place] [phone] Phone Care Team Providers Care Supervising Floorperson Name Role Phone Tomas Copeland MD Primary Care Provider [phone] Allergies No known active allergies Medications budesonide-form [...] 04/03/2025 1:15 PM EDT Office Visit Pulmonology [facility] 175 [facility] [address] [place] [phone] Vel Redding MD Mild persistent asthma, unspecified [...] on file Sexual Orientation Not on file Last Filed Vital Signs Vital Sign Reading [...] 3:30 PM EDT Office Visit Pulmonology - [address] [place] [address] Vel Redding MD [address] [place] [phone] Health Maintenance Due Date Last Done Comments Colorectal Cancer Screening: Colonoscopy 1965 DTaP,Tdap,and Td Vaccines (1 - Tdap) 10/02/1982 Pneumococcal Vaccine: 50+ Years (1 of 2 - PCV) 10/02/1982 RSV Immunization Adult Patients (1 - Risk 50-74 years 1-dose series) 10/02/2013 Zoster Vaccines (1 of 2) 10/02/2013 Cholesterol Screening (Lipid Panel) 05/26/2022 HIV Screening 05/26/2022 Hepatitis C Screening 05/26/2022 Social Influencers of Health Screening 05/26/2022 Depression Screening 06/28/2024 COVID-19 Vaccine (3 - 2024-2 6 season) 2025 10/26/2020, 10/05/2020 Influenza Vaccine (#1) 2025 4, 04/27/2022, 05/17/2020 HIB Vaccines Aged Out No [...] patient's age to complete this topic Insurance [facility] Care Teams Supervising Floorperson Relationship Specialty Start Date End Date Tomas Copeland MD [address] [place] [phone] PCP - General Internal Medicine 02/09/25
== END 2025-06-06 14:50 | disposition home or self-care (01) ==
LOC: HO.RHES 14:07
PROVIDERS: PCP Internal Medicine; Visit Provider Internal Medicine Rheumatology
DX: M1A.9XX1 Chronic gout, unspecified, with tophus (tophi) (principal); M25.512 Pain in left shoulder
CPT/HCPCS: 99214